=== PATIENT | female | born 1940 | race Caucasian/White ===

== ENCOUNTER 2019-06-22 10:57 | Observation (INO) ==
[2019-06-22] MEDS ORDERED: PEPCID PO ONE (11:27)
[2019-06-22] MEDS ORDERED: G.I. COCKTAIL PO ONE (11:27)
[2019-06-22] MEDS ORDERED: NITROGLYCERIN SL ONE (13:06)
[2019-06-22 13:17] LABS: BASO# 0.03 X1000 (0.0-0.2); BASO% 0.6 % (0.0-0.8); EOS# 0.02 X1000 (0.0-0.7); EOS% 0.4 % (0.0-10.0); HEMATOCRIT 40.5 % (37.0-47.0); HEMOGLOBIN 12.9 g/dL (12.0-16.0); IMM GRAN# 0.01 X1000 (0.0-0.04); IMM GRAN% 0.2 % (0.0-0.5); LYMPH# 2.13 X1000 (1.2-3.4); LYMPH% 42.9 % (20.5-51.1); MCH 32.3 PG (27-31); MCHC 31.9 g/dL (33-37); MCV 101.3 FL (81-99); MONO# 0.48 X1000 (0.11-0.59); MONO% 9.7 % (1.7-9.3); MPV 9.3 FL (7.4-10.4); NEUT% 46.2 % (42.2-75.2); PLT 232 X1000 (130-400); RDW 13.3 % (11.5-14.5); WBC 4.97 X1000 (4.8-10.8)
[2019-06-22 13:29] LABS: CHLORIDE 104 mmol/L (98-107); SODIUM 144 mmol/L (136-145)
[2019-06-22 13:35] LABS: URINE SOURCE CLEAN CATCH
[2019-06-22 13:39] LABS: AGAP 17; BUN 15 mg/dL (8-22); CALCIUM 9.5 mg/dL (8.8-10.2); COSMO 285; CREATININE 0.9 mg/dL (0.5-0.9); GLUCOSE 87 mg/dL (70-104); TCO2 23 mmol/L (25-35)
[2019-06-22 13:43] LABS: BILIRUBIN URINE NEGATIVE (NEGATIVE); BLOOD URINE NEGATIVE (NEGATIVE); COLOR STRAW; GLUCOSE URINE NEGATIVE (NEGATIVE); KETONE URINE NEGATIVE (NEGATIVE); LEUKOCYTES URINE TRACE (NEGATIVE); NITRITE URINE NEGATIVE (NEGATIVE); PH URINE 6.5; PROTEIN URINE NEGATIVE (NEGATIVE); SP GRAVITY URINE 1.005; TURBIDITY URINE CLEAR (CLEAR); UR EPITHELIAL CELLS <10 /HPF (<10); URINE BACTERIA NEGATIVE /HPF; URINE RBC <10 /HPF (<10); URINE WBC <10 /HPF (<10); UROBILINOGEN URINE NORMAL (NORMAL)
--- NOTE | 2019-06-22 14:01 | Diag Imaging Result Doc PS360 ---
EXAM: FLAT/UPRIGHT ABD/1 VIEW CHEST - 06/22/2019 HISTORY: CP TECHNIQUE: Supine and upright abdomen one view chest COMPARISON: 04/04/2017 portable chest FINDINGS: The bowel gas pattern appears nonspecific and nonobstructive. There is some retained fecal debris in the colon. There is no free air identified. Upright chest shows normal heart size. There are COPD changes with mildly hyperexpanded lungs. The lungs appear clear of acute changes. There is no pleural effusion or pneumothorax identified. There are breast implants noted. IMPRESSION: Nonspecific bowel gas pattern. COPD. No evidence of acute cardiopulmonary disease. Electronically signed by [employer] 06/22/2019 1:58 PM
--- NOTE | 2019-06-22 14:17 | PROVIDER DOCUMENTATION ---
This chart was entered by Lise Chaudhary Scribe, acting as scribe for Ezra Mancini MD. HPI-EENT General - General Chief Complaint: Sore Throat Stated Complaint: THROAT BLEEDING Time Seen by Provider: 06/22/19 11:03 Source: patient Allergies/Adverse Reactions: Patient Allergies Allergy/AdvReac Type Severity Reaction Status Date / Time No Known Allergies Allergy Verified 06/22/19 11:22 Home Medications: Home Medication List Medication Instructions Recorded Confirmed Last Taken Type ATORVAstatin [Lipitor] 10 mg PO DAILY 06/22/19 06/22/19 Unknown History Lisinopril 10 mg PO DAILY 06/22/19 06/22/19 Unknown History - History of Present Illness-EENT General Nature of Presenting Problem: 78 y/o female presents to the ED with complaint of sore throat and upper chest pain (burning). The patient states she was told to have raw and esophogus by PCP in February and was given pantoprazole for this which gives her diarrhea so she does not take it as much as prescribed. She also complains of rhinorrhea and sinus/allergy complaints times two days as well as blood in her mouth on waking this am and with clearing her throat. NKDA. Health hx has been good and not treated for COPD ,cardiac disease, HTN or DM. Stressed with ill health her elderly mother who has dementia. EENT Location: reports: throat Quality of Pain: reports: burning Onset/Duration: reports: 2 days ago Timing: reports: still present Prearrival Treatment: Initiated prescription meds (pantoprazole) Locality of [place]: Home Similar Symptoms Previously?: Yes Recently seen or treated by another doctor?: No - Throat/Dental Throat/Dental Problem Symptoms: reports: sore throat Review of Systems - Adult - REVIEW OF SYSTEMS - ADULT Constitutional: denies: chills, fever, weight gain Eyes: reports: no symptoms reported Ears, Nose, Mouth & Throat: reports: sinus problem, throat pain (and upper ches t), other (blood in sputum). denies: tinnitus, epistaxis Cardiovascular: reports: chest pain. denies: palpitations, syncope Respiratory: reports: hemoptysis. denies: cough, shortness of breath, wheezing Gastrointestinal: reports: diarrhea (due to medication). denies: nausea, vomiting Genitourinary: reports: no symptoms reported Musculoskeletal: reports: no symptoms reported Integumentary: reports: no symptoms reported Neurological: reports: no symptoms reported Psychiatric: reports: no symptoms reported Endocrine: reports: no symptoms reported Hematologic/Lymphatic: reports: no symptoms reported Allergic/Immunologic: reports: no symptoms reported All Other Systems: Reviewed and Negative Past History - Adult - PAST MEDICAL HISTORY-ADULT Review of Records: reports: Nursing Assessment Review, Medications Reviewed Major Childhood Illnesses: reports: denies history Cardiovascular: reports: denies history Respiratory: reports: denies history Gastrointestinal: reports: denies history Obstetrical/Gynecological: reports: denies history Genitourinary: reports: denies history Musculoskeletal: reports: denies history Neurological: reports: denies history Psychiatric: reports: denies history Endocrine/Immune: reports: denies history Other Conditions: reports: denies history - PRIOR SURGERIES/PROCEDURES Surgical/Procedure History: reports: hysterectomy - IMMUNIZATION STATUS Childhood Immunizations: See Nurse Assessment Flu Vaccine: See Nurse Assessment - FAMILY HISTORY Family History: reviewed, not pertinent - SOCIAL HISTORY Smoking: non-smoker Living Situation: family Physical Exam- EENT - Physical Exam EENT Initial Vital Signs Reviewed: Yes General Appearance: alert, thin Eye Exam: bilateral eye: PERRL Nasal Exam: normal inspection Throat Exam: pharynx tenderness, other (submental tenderness to palpation) Neck: full range of motion, supple Extremity: normal range of motion Integumentary: warm/dry. negative: diaphoresis Neurologic: grossly normal Psych/Mental Status: normal mood/affect, normal thought content, normal thought process Progress - PLAN OF CARE/RESULTS Progress/Plan/Lab Results: Vital Signs - 8 hr 06/22/19 11:00 06/22/19 14:00 Temperature 98.2 F 98.9 F Pulse Rate 76 64 Respiratory Rate 15 19 Blood Pressure 175/99 142/78 O2 Sat by Pulse Oximetry 100 97 Laboratory Results - last 24 hr 06/22/19 06/22/19 06/22/19 11:55 11:55 11:55 WBC RBC Hgb Hct MCV MCH MCHC RDW Std Deviation Plt Count MPV Immature Gran % (Auto) Neut % (Auto) Lymph % (Auto) [place] % (Auto) Eos % (Auto) Baso % (Auto) Immature Gran # (Auto) Neut # (Auto) Lymph # (Auto) [place] # (Auto) Eos # (Auto) Baso # (Auto) D-Dimer, Quantitative Sodium 144 Potassium 4.0 Chloride 104 Carbon Dioxide 23 L Anion Gap 17 BUN 15 Creatinine 0.9 BUN/Creatinine Ratio 17 Glucose 87 Calculated Osmolality 285 Calcium 9.5 Magnesium 2.1 Troponin T High Sens 9 Urine Source Urine Color Urine Turbidity Urine pH Ur Specific [place] Urine Protein Ur Glucose (Stick) Ur Ketones (Stick) Urine Blood Urine Nitrite Urine Bilirubin Urobilinogen Dipstick Urine Leukocytes Urine WBC (Auto) Urine RBC (Auto) U Epithel Cells (Auto) Urine Bacteria (Auto) 06/22/19 06/22/19 06/22/19 11:55 11:55 13:25 WBC 4.97 RBC 4.00 L Hgb 12.9 Hct 40.5 MCV 101.3 H MCH 32.3 H MCHC 31.9 L RDW Std Deviation 13.3 Plt Count 232 MPV 9.3 Immature Gran % (Auto) 0.2 Neut % (Auto) 46.2 Lymph % (Auto) 42.9 [place] % (Auto) 9.7 H Eos % (Auto) 0.4 Baso % (Auto) 0.6 Immature Gran # (Auto) 0.01 Neut # (Auto) 2.30 Lymph # (Auto) 2.13 [place] # (Auto) 0.48 Eos # (Auto) 0.02 Baso # (Auto) 0.03 D-Dimer, Quantitative < 0.27 Sodium Potassium Chloride Carbon Dioxide Anion Gap BUN Creatinine BUN/Creatinine Ratio Glucose Calculated Osmolality Calcium Magnesium Troponin T High Sens 9 Urine Source Urine Color Urine Turbidity Urine pH Ur Specific [place] Urine Protein Ur Glucose (Stick) Ur Ketones (Stick) Urine Blood Urine Nitrite Urine Bilirubin Urobilinogen Dipstick Urine Leukocytes Urine WBC (Auto) Urine RBC (Auto) U Epithel Cells (Auto) Urine Bacteria (Auto) 06/22/19 13:25 WBC RBC Hgb Hct MCV MCH MCHC RDW Std Deviation Plt Count MPV Immature Gran % (Auto) Neut % (Auto) Lymph % (Auto) [place] % (Auto) Eos % (Auto) Baso % (Auto) Immature Gran # (Auto) Neut # (Auto) Lymph # (Auto) [place] # (Auto) Eos # (Auto) Baso # (Auto) D-Dimer, Quantitative Sodium Potassium Chloride Carbon Dioxide Anion Gap BUN Creatinine BUN/Creatinine Ratio Glucose Calculated Osmolality Calcium Magnesium Troponin T High Sens Urine Source CLEAN CATCH Urine Color STRAW Urine Turbidity CLEAR Urine pH 6.5 Ur Specific [place] 1.005 Urine Protein NEGATIVE Ur Glucose (Stick) NEGATIVE Ur Ketones (Stick) NEGATIVE Urine Blood NEGATIVE Urine Nitrite NEGATIVE Urine Bilirubin NEGATIVE Urobilinogen Dipstick NORMAL Urine Leukocytes TRACE A Urine WBC (Auto) <10 Urine RBC (Auto) <10 U Epithel Cells (Auto) <10 Urine Bacteria (Auto) NEGATIVE Orders Category Date Time Status Saline Loc NOW Care 06/22/19 13:03 Active FLAT/UPRIGHT ABD/1 VIEW CHEST [RAD] Stat Exams 06/22/19 13:05 Completed BASIC METABOLIC PANEL [CHEM] Stat Lab 06/22/19 11:55 Completed CBC WITH ELECTRONIC DIFF [HEME] Stat Lab 06/22/19 11:55 Completed D-DIMER [COAG] Stat Lab 06/22/19 11:55 Completed MAGNESIUM [CHEM] Stat Lab 06/22/19 11:55 Completed TROPONIN T HIGH SENSITIVITY Stat Lab 06/22/19 11:55 Completed TROPONIN T HIGH SENSITIVITY Stat Lab 06/22/19 13:25 Completed URINALYSIS W/POSS RFLX CULT [URINALYSIS] Stat Lab 06/22/19 13:25 Completed URINE CULTURE [RM] Routine Lab 06/22/19 14:02 Ordered Famotidine [Pepcid] Med 06/22/19 11:27 Discontinued 40 mg PO NOW ONE Lido/Adair Alk/Al&mg Hydrox [G.i. Cocktail] Med 06/22/19 11:27 Discontinued 30 ml PO NOW ONE Nitroglycerin Sl [Nitroglycerin] Med 06/22/19 13:06 Discontinued 0.4 mg SL NOW ONE EKG [EKG] Stat Ther 06/22/19 11:26 Ordered EKG [EKG] Stat Ther 06/22/19 13:04 Ordered Transfer/Admit Order [TRANSFER] Routine Transfer 06/22/19 14:02 Ordered 1341: Discussed with family lab and other results as well as admission plan and they are in agreement. Result Diagrams: 06/22/19 11:55 06/22/19 11:55 - REASSESSMENT Reassessment #1 Time Reassessed: 13:16 Status: worsening (BP up t 190/ dizzy, diaphoretic, substernal discomfort, repeating Trop and calling dr Ennis [facility] obs admit.) Reassessment #2 Time Reassessed: 13:59 Status: improving Reassessment Comment: feel better with nitroglycerin, BP came down to 140/70. D- Dimer not up - EKG 1 Time of EKG reading by physician:: 12:08 EKG Read and Signed by:: Ezra Mancini EKG Interpretation (*Must complete 3 of following elements*): Abnormal Rate: 64 Rhythm: NSR Comments: septal infarct age undetermined 2 Time of EKG reading by physician:: 13:58 EKG Read and Signed by:: Ezra Mancini EKG Interpretation (*Must complete 3 of following elements*): Abnormal Rate: 68 Rhythm: NSR [facility]: left Comments: septal infarct age undetermined - CONSULTS/PCP/HOSPITALIST Notification #1 *Consult/PCP/Hospitalist*: Dr. Ennis, Hospitalist Time Discussed: 13:27 Reason/Comments: chest pain, hypertension, diaphoresis Consult Disposition: Admit Departure - Departure Date of Disposition Decision: 06/22/19 Time of Disposition Decision: 13:29 DIAGNOSIS: Diaphoresis Chest pain Qualifiers: Chest pain type: unspecified Qualified Code(s): R07.9 - Chest pain, unspecified Hypertension Qualifiers: Hypertension type: unspecified Qualified Code(s): I10 - Essential (primary) hypertension Disposition: ADMITTED INPATIENT 09 Certified Medical Emergency: Emergent Condition: Good Referrals and Follow-Ups: Naresh Baca MD [Primary Care Provider] - - Critical Care Note This patient required my direct & personal management of CC.: No Attestation - Physician/ WARREN Attestation Patient care was provided by Advanced Practice Provider:: No The physician spent face to face time with patient:: Yes Advanced Practice Provider documentation review:: Supervising physician onsite and consulted in the evaluation and care of this patient. The physician did have a face to face encounter with the patient. This chart was documented by the indicated scribe, (Lise Chaudhary Scribe) and accurately reflects the services I performed and decisions made by me, Ezra Mancini MD, as attested by the provider's signature.
--- NOTE | 2019-06-22 14:58 | HISTORY AND PHYSICAL ---
PRIMARY CARE PHYSICIAN: Dr. Baca. CHIEF COMPLAINT: Of upper chest burning in the esophagus area, sore throat and sinus congestion that has been present, worse over the last 2 days. HISTORY OF PRESENTING ILLNESS: This is a 78-year-old female who presents to [facility] ER with complaints of upper chest pain, burning sensation in the esophagus area of her chest, sore throat. States that she coughed up some red tinged sputum this morning. Has had a history of some esophagitis in the past but was unable to take the medicine because it caused diarrhea. Workup shows negative troponin. Her abdomen x-ray showed a nonspecific bowel gas pattern, COPD and no evidence of acute cardiopulmonary disease. States she has been followed by Dr. Mckeon for her GI issues but again, was unable to take the medication. Her blood pressure was elevated when she first got here with systolic up in the 190s, felt dizzy, diaphoretic with substernal discomfort so she will be admitted for further evaluation and treatment. PAST MEDICAL HISTORY: Hypertension, hyperlipidemia, lupus, esophagitis and GERD. PAST SURGICAL HISTORY: Hysterectomy and breast augmentation. FAMILY HISTORY: Reviewed and noncontributory. SOCIAL HISTORY: Currently lives with family. Denies any tobacco, alcohol or illicit drug use. ALLERGIES: She has no known drug allergies. HOME MEDICATIONS: She takes Lipitor 10 mg p.o. daily and lisinopril 10 mg daily. LABORATORY DATA: Showed a white blood cell count of 4.97, hemoglobin 12.9, hematocrit 40.5, platelets 232,000. Sodium 144, potassium 4, chloride 104, CO2 23, BUN of 15, creatinine 0.9, glucose 87, magnesium 2.1. Troponin T high sensitivity of 9. Urinalysis was negative. Abdomen x-ray showed a nonspecific bowel gas pattern, COPD, and no evidence of acute cardiopulmonary disease. EKG showed normal sinus rhythm at 64. REVIEW OF SYSTEMS: She denied any fever, chills, blurred vision. She has had some dizziness, diaphoresis, substernal chest pain, sore throat. Denies any shortness of breath, constipation, diarrhea, burning or hurting with urination. PHYSICAL EXAMINATION: On arrival she had a temperature of 98.2 degrees, pulse 76, respirations 15, blood pressure 175/99, saturating 100% on room air. GENERAL: This is a 78-year-old female who is lying in the bed and answers questions appropriately. HEENT: Normocephalic, atraumatic. Normal ENT inspection. Oropharynx and nares are clear. Pupils are equal, round, reactive to light, accommodation. Extraocular movements are intact. NECK: Normal inspection, normal range of motion. LUNGS: Clear to auscultation bilaterally with equal lung expansion and chest wall movement. HEART: With regular rate and rhythm. No murmurs, rubs, or gallops. ABDOMEN: Soft, nontender, nondistended. Bowel sounds are present x4 quadrants. MUSCULOSKELETAL: She has 5/5 strength x4 extremities. NEUROLOGICAL: Cranial nerves 2-12 appear grossly intact. ASSESSMENT: 1. Chest pain. 2. Dizziness. 3. Hypertension. 4. Gastroesophageal reflux disease. PLAN: She will be admitted to the medical unit, placed on telemetry, O2 per protocol. We will do serial cardiac enzymes. She will have a healthy heart diet now. NPO after midnight. We will do a myocardial perfusion scan. I am going to start her on some Carafate 1 g p.o. q.6 hours and further orders after seen by attending. Dictated by CARON Dodson for Daryn Ennis MD cc: MD Daryn Hernandez MD
--- NOTE | 2019-06-22 15:02 | EKG Report ---
Test Performed on : 06/22/2019 1:57:24 PM Test Reason : CP Blood Pressure : / mmHG Vent. Rate : 068 BPM Atrial Rate : 068 BPM P-R Int : 158 ms QRS Dur : 080 ms QT Int : 424 ms P-R-T Axes : 056 -30 050 degrees QTc Int : 450 ms Normal sinus rhythm. Left axis deviation Septal infarct (cited on or before 22-JUN-2019) Abnormal ECG When compared with ECG of 22-JUN-2019 12:06, (Unconfirmed) No significant change was found Unconfirmed Result
--- NOTE | 2019-06-22 15:02 | EKG Report ---
Test Performed on : 06/22/2019 12:06:50 PM Test Reason : CP Blood Pressure : / mmHG Vent. Rate : 064 BPM Atrial Rate : 064 BPM P-R Int : 166 ms QRS Dur : 076 ms QT Int : 404 ms P-R-T Axes : 064 -20 019 degrees QTc Int : 416 ms Normal sinus rhythm. Septal infarct , age undetermined Abnormal ECG When compared with ECG of 16-APR-2017 19:19, No significant change was found Unconfirmed Result
[2019-06-22] MEDS ORDERED: ZOFRAN IV PRN (16:33)
[2019-06-22] MEDS ORDERED: TYLENOL PO PRN (16:33)
[2019-06-22] MEDS ORDERED: NITROGLYCERIN SL PRN (16:33)
[2019-06-22] MEDS: LOVENOX SUBQ SCH (17:29)
[2019-06-22] MEDS: CARAFATE LIQUID PO SCH ×2 (17:29→22:33)
--- NOTE | 2019-06-22 18:32 | HISTORY AND PHYSICAL ---
ADDENDUM: Patient seen and examined by myself. Full note dictated and discussed with nurse practitioner. Patient presented to the hospital with chest burning and pain in her upper chest, esophagus area. We are going to admit her to the hospital. First set of enzymes are negative. She certainly may require a stress test. We will continue her home medications. Follow her blood pressure and cholesterol and will follow. cc: Daryn Ennis MD
[2019-06-23] MEDS: CARAFATE LIQUID PO SCH ×3 (05:05→17:17)
[2019-06-23] MEDS ORDERED: ASPIRIN PO SCH (09:00)
[2019-06-23] MEDS ORDERED: PRINIVIL PO SCH (09:00)
--- NOTE | 2019-06-23 11:37 | EKG Report ---
Test Performed on : 06/23/2019 10:43:01 AM Test Reason : CP Blood Pressure : / mmHG Vent. Rate : 055 BPM Atrial Rate : 055 BPM P-R Int : 162 ms QRS Dur : 080 ms QT Int : 450 ms P-R-T Axes : 059 -23 061 degrees QTc Int : 430 ms Sinus bradycardia. Septal infarct (cited on or before 22-JUN-2019) Abnormal ECG When compared with ECG of 22-JUN-2019 13:57, (Unconfirmed) No significant change was found Confirmed by Hubert Damon MD ([id number]) on 06/24/2019 5:46:44 AM
[2019-06-23] MEDS ORDERED: LEXISCAN ONE (12:17)
--- NOTE | 2019-06-23 16:27 | Diag Imaging Result Document ---
PROCEDURE NAME: MYOCARDIAL PERF SCAN, STR/REST - 06/23/2019 STUDY: Lexiscan sestamibi interpretation SUMMARY: The patient was administered 10.5 mCi of technetium-99m sestamibi, after which resting cardiac images were obtained. The patient was subsequently administered Lexiscan 0.4 mg intravenously, after which the heart rate went up from 64 beats per minute to 98 beats per minute. The blood pressure went from 140/71 to 163/74. With Lexiscan, the patient denied chest discomfort. Following the administration of Lexiscan, the patient was administered. 31.8 mCi of technetium-99m sestamibi, after which gated stress cardiac images were obtained. Baseline ECG demonstrated normal sinus rhythm. With Lexiscan, there were no diagnostic ST-segment changes. SPECT images were reconstructed in the short, horizontal long, and vertical long axis. Review of these images demonstrated homogeneous uptake of radiopharmaceutical on both stress and resting images. Gated images demonstrate a calculated left ventricular ejection fraction of 90% with symmetrical wall motion/thickening. CONCLUSIONS: 1. Adequate response to Lexiscan. 2. Clinically negative for chest pain. 3. Electrocardiographically negative for Lexiscan induced myocardial ischemia. 4. Normal Lexiscan sestamibi images. cc: MD Olivia Rodriguez CRNP
--- NOTE | 2019-06-23 16:47 | PROGRESS NOTE ---
DATE: 06/23/2019 SUBJECTIVE: Patient reports no burning sensation in the epigastric area. No fever or chills. OBJECTIVE: Vital Signs: Temperature 97.9 degrees, heart rate 75, respiratory rate 18, blood pressure 131/54. O2 saturation 99% on room air. General: This is a 78-year-old female lying in bed, in no acute distress. Cardiovascular: S1, S2 heard. No murmurs, gallops, or rubs. Regular rate and rhythm. Respiratory: Clear bilaterally to auscultation. No work of breathing or using accessory muscles. Abdomen: Soft, nontender to palpation. Bowel sounds present. No organomegaly. Extremities: No clubbing, cyanosis, or edema. Peripheral pulses present in both legs. Neurological: Patient is alert, oriented x3. Moves 4 extremities. LABORATORY DATA: Reviewed. ASSESSMENT AND PLAN: 1. Chest pain. 2. Hypertension. 3. Gastroesophageal reflux disease. PLAN: At this time, chest pain, is resolved. We have ordered a Lexiscan stress test. That exam is still pending. At this point, her vitals are okay and the chest pain as we mentioned before is gone. So if those exams are okay, we can discharge her later on today or tomorrow morning. cc: Júnior Mo MD
[2019-06-23 16:50] VITALS: BP 112/73
[2019-06-23] MEDS: LOVENOX SUBQ SCH (17:18)
[2019-06-23] MEDS ORDERED: LIPITOR PO SCH (21:00)
--- NOTE | 2019-06-24 10:29 | DISCHARGE SUMMARY ---
ADMISSION DATE: 06/22/2019 DISCHARGE DATE: 06/23/2019 DISCHARGE DIAGNOSES: 1. Chest pain, resolved. 2. Acute coronary syndrome ruled out. 3. Hypertension. 4. Gastroesophageal disease. 5. Dizziness. CONSULTATIONS: None. PROCEDURES: 1. Abdominal x-ray done on admission showed nonspecific bowel gas pattern. 2. Myocardial perfusion scan, nuclear medicine showed adequate response to Lexiscan with clinically negative for chest pain, electrocardiographically negative for Lexiscan-induced myocardial ischemia, and normal Lexiscan sestamibi images. HOSPITAL COURSE: This is a 78-year-old, female who presented to the emergency department at [facility] complaining of chest pain, burning sensation in the esophagus. Considering her risk factors, we decided to work up for ischemic reasons for the chest pain while we treated her also with omeprazole. This patient started feeling better. We have checked troponins 3 times and also an x-ray which did not show any evidence of acute cardiopulmonary disease. The blood pressure at the beginning was elevated but then it got better. She underwent Lexiscan with results as above. Chest pain is completely resolved. At this point, the patient is going to be discharged in stable condition. She is going to have a followup with her primary care physician in a week. DISCHARGE PHYSICAL EXAMINATION: Temperature 98.1 degrees, heart rate 65, respiratory rate 18, blood pressure 121/54, O2 saturation 99% on room air. General Examination: This is a 78-year- old, female lying in bed, in no acute distress. Cardiovascular Examination: S1 and S2 heard. No murmurs, gallops, or rubs. Regular rate and rhythm. Respiratory Examination: Clear bilaterally to auscultation. No work of breathing or using accessory muscles. Abdomen: Soft, nontender to palpation. Bowel sounds present. No organomegaly. Extremities: No clubbing, cyanosis, or edema. Peripheral pulses present in both legs. Neurological Examination: The patient is alert and oriented x3. Moves 4 extremities. DISCHARGE DISPOSITION: Home to self-care. LIST OF MEDICATIONS: We are not going to make any changes to her current medications. FOLLOWUP: With her primary care physician in a week. cc: Júnior Mo MD
== END 2019-06-23 18:50 | disposition home or self-care (01) ==
LOC: P.ED 10:57 → P.MEDSURG 10:57 → SUATTDRO 16:07
PROVIDERS: ATTEND Internal Medicine